=== PATIENT | female | born 1980 | race Caucasian/White ===

== ENCOUNTER → 2023-08-03 17:03 | Outpatient (CLI) | payer OTHER, MEDICAID, SELFPAY ==
[2023-08-03 17:57] LABS: Add Manual Diff / Slide Review NO; Basophils Absolute Auto 100 /uL (0-100); Basophils Percent Auto 0.7 % (0-2); Eosinophils Absolute Auto 100 /uL (0-450); Eosinophils Percent Auto 1.1 % (2-4); Hematocrit 39.1 % (36-46); Hemoglobin 13.7 g/dL (12.0-16.0); Lymphocytes Absolute Auto 3100 /uL (1100-4500); Lymphocytes Percent Auto 31.4 % (25-40); Mean Corpuscular HGB Conc 35.1 % (30-36); Mean Corpuscular Hemoglobin 29.6 PG (26-34); Mean Corpuscular Volume 84.3 fL (80-100); Monocytes Absolute Auto 500 /uL (0-900); Neutrophils Absolute Auto 6200 /uL (1500-7000); Neutrophils Percent Auto 61.8 % (50-75); Platelet Count 331 X10^3/uL (150-400); Red Blood Cell Count 4.63 X10^6/uL (4.0-5.2); Red Cell Distribution Width 13.3 % (11.6-14.8)
[2023-08-03 18:04] LABS: Hemoglobin A1C% w Est Avg Glu 7.4 % (4.0-6.0)
[2023-08-03 18:21] LABS: Alanine Aminotransferase 13 IU/L (<35); Albumin 4.5 g/dL (3.5-5.0); Albumin Globulin Ratio 1.3 (1.0-2.8); Alkaline Phosphatase 56 U/L (38-126); Aspartate Aminotransferase 17 IU/L (14-36); BUN Creatinine Ratio 18.8 (6-22); Bilirubin Total 0.5 mg/dL (0.2-1.3); Blood Urea Nitrogen 12 mg/dL (7-17); Calcium 9.6 mg/dL (8.4-10.2); Carbon Dioxide 23 mmol/L (22-32); Chloride 103 mmol/L (98-107); Estimated Glomerular Filt Rate > 60 mL/min (>60); Globulin 3.6 g/dL (1.7-4.1); Glucose 161 mg/dL (70-100); HEMOLYSIS < 15 (0-50); Potassium 3.8 mmol/L (3.4-5.1); Sodium 135 mmol/L (137-145); Total Protein 8.1 g/dL (6.3-8.2)
[2023-08-03 18:50] LABS: TSH w/ Reflex to FT4 1.41 uIU/mL (0.47-4.68)
[2023-08-03 19:58] LABS: Urine N gonorrhoeae NOT DETECTED
[2023-08-03 20:07] LABS: Urine Chlamydia NOT DETECTED
[2023-08-03 20:44] LABS: Creatinine Urine Random 61.5 mg/dL
[2023-08-03 20:49] LABS: Microalbumi Creatinin Ratio Ur 9.7 ug/mg CR (<30); Microalbumin Urine Random 0.6 mg/dL (0-1.6)
[2023-08-04 19:52] LABS: HIV 1 & 2 Ab/Ag 4th Gen Combo NEGATIVE (NEGATIVE)
[2023-08-05 05:39] LABS: RPR Screen Non Reactive (Non Reactive)
== END ==
LOC: LAB 17:04
PROVIDERS: PCP Family Medicine; Referring Provider Family Medicine; Visit Provider Family Medicine
DX: Z11.3 Encounter for screening for infections with a predominantly sexual mode of transmission (principal); E10.9 Type 1 diabetes mellitus without complications
CPT/HCPCS: 36415; 80053; 82043; 82570; 83036; 84443; 85025; 86592; 87389; 87491; 87522; 87591

== ENCOUNTER → 2024-04-12 09:09 | Outpatient (CLI) | payer OTHER, MEDICAID, SELFPAY ==
[2024-04-12 11:00] LABS: Cholesterol 183 mg/dL (140-199); HDL Cholesterol 67 mg/dL (40-60); LDL Cholesterol Calculated 104 mg/dL (<100); Triglycerides 60 mg/dL (35-150)
== END ==
PROVIDERS: PCP Family Medicine; Referring Provider Family Medicine; Visit Provider Family Medicine
DX: Z11.3 Encounter for screening for infections with a predominantly sexual mode of transmission (principal); E10.9 Type 1 diabetes mellitus without complications; R10.9 Unspecified abdominal pain; R11.0 Nausea
CPT/HCPCS: 36415; 80061; 82784; 83516

== ENCOUNTER → 2024-04-14 10:26 | Outpatient (CLI) | payer OTHER, MEDICAID, SELFPAY ==
[2024-04-16 16:39] LABS: C difficie Toxins A and B, EIA Negative (Negative)
== END ==
PROVIDERS: PCP Family Medicine; Referring Provider Family Medicine; Visit Provider Family Medicine
DX: R11.0 Nausea (principal); R10.9 Unspecified abdominal pain
CPT/HCPCS: 87045; 87324; 87329

== ENCOUNTER → 2024-04-24 10:51 | Outpatient (CLI) | payer OTHER, MEDICAID, SELFPAY ==
--- NOTE | 2024-04-24 10:53 | DI.US.S_ITS ---
LIMITED ULTRASOUND OF LEFT BREAST: 04/24/2024 CLINICAL: Focal left breast pain x 3 areas. 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 No prior exams were available for comparison. Real-time ultrasound of the left breast 5-7 o'clock region was performed. Benz scale images of the real-time examination were reviewed. No sonographic abnormality is seen in the area of clinical concern in the left breast 5, 6 and 7 o'clock, 7 cm from the nipple. IMPRESSION: NEGATIVE No sonographic abnormality in the areas of clinical concern. No sonographic evidence of malignancy. Clinical follow-up is recommended, and further management of palpable abnormalities or other focal signs or symptoms should be based on the results of clinical evaluation. If palpable abnormality or other concerning symptom persists or progresses, further clinical evaluation should be considered. Findings and recommendations were conveyed to the patient during today's evaluation. This exam was interpreted at Station ID: [id number]. Electronically Signed By: Danielle Haynes M.D., Ph.D. eb/:05/09/2024 09:15:45 letter sent: Clinical Evaluation ACR BI-RADS Category 1: Negative
[2024-04-24 11:20] LABS: Estimated Glomerular Filt Rate > 60 mL/min (>60)
--- NOTE | 2024-04-24 12:29 | DI.CT.S_ITS ---
PROCEDURE: CT ABDOMEN PELVIS W CON INDICATIONS: abdominal pain, nausea TECHNIQUE: After the administration of intravenous contrast, axial sections acquired from the lung bases to the pubic symphysis. Coronal and sagittal reformats were performed. For radiation dose reduction, the following was used: automated exposure control, adjustment of mA and/or kV according to patient size. COMPARISON: None. FINDINGS: Image quality: Diagnostic. Lower Chest: No significant findings. ABDOMEN: Liver: No solid mass. Gallbladder: No radiopaque gallstones or wall thickening. Biliary ducts: No biliary dilation. Pancreas: No ductal dilation. Spleen: Size is within normal limits. Incidental note is made of an accessory splenule along the hilum of the primary spleen. Adrenal Glands: No adrenal nodules. Kidneys and Ureters: No hydronephrosis. No solid mass. No complex renal cystic lesion which requires follow up. A 5 mm nonobstructing right-sided kidney stone is seen, as on series 2, image 50, measuring 400 Hounsfield units. Stomach and Bowel: Normal colonic caliber, without significant wall thickening. Peritoneum: No abnormal intraperitoneal fluid. No free air. Ventral Wall: A mild periumbilical hernia is seen, containing fat. Abdominal Nodes: No retroperitoneal or mesenteric adenopathy by size criteria. Vessels: Aorta and inferior vena cava are normal in size. PELVIS: Pelvic Organs: No adnexal masses are seen on either side. Bladder: No bladder wall thickening, accounting for underdistention. Pelvic Nodes: No enlarged lymph nodes. Miscellaneous: No inguinal hernias are seen. Bones: No aggressive osseous abnormality. IMPRESSION: No imaging explanation is found for this patient's presenting symptoms. No dilated loops of small bowel are seen. Additional findings: Accessory splenule 5 mm nonobstructing right-sided kidney stone Mild fat containing periumbilical hernia Dictated by: Stephen Schuler M.D. on 04/24/2024 at 11:55 Approved by: Stephen Schuler M.D. on 04/24/2024 at 11:57
== END ==
PROVIDERS: Radiology Diagnostic Radiology; PCP Family Medicine; Referring Provider Family Medicine; Visit Provider Family Medicine
DX: N64.4 Mastodynia (principal); R10.9 Unspecified abdominal pain; R11.0 Nausea; K42.9 Umbilical hernia without obstruction or gangrene; N20.0 Calculus of kidney
CPT/HCPCS: 36415; 74177; 76642; 82565; Q9967

== ENCOUNTER → 2024-09-25 15:08 | Outpatient (CLI) | payer OTHER, SELFPAY ==
[2024-09-25 15:49] LABS: Add Manual Diff / Slide Review NO; Basophils Absolute Auto 0 /uL (0-100); Basophils Percent Auto 0.5 % (0-2); Eosinophils Absolute Auto 200 /uL (0-450); Eosinophils Percent Auto 1.9 % (2-4); Hemoglobin 12.6 g/dL (12.0-16.0); Lymphocytes Absolute Auto 2100 /uL (1100-4500); Lymphocytes Percent Auto 24.7 % (25-40); Mean Corpuscular Hemoglobin 29.8 PG (26-34); Mean Corpuscular Volume 87.8 fL (80-100); Monocytes Absolute Auto 500 /uL (0-900); Monocytes Percent Auto 5.7 % (3-14); Neutrophils Absolute Auto 5800 /uL (1500-7000); Neutrophils Percent Auto 67.2 % (50-75); Platelet Count 216 X10^3/uL (150-400); Red Blood Cell Count 4.21 X10^6/uL (4.0-5.2); Red Cell Distribution Width 12.7 % (11.6-14.8); White Blood Cell Count 8.7 X10^3/uL (4.5-11.0)
[2024-09-25 16:09] LABS: HEMOLYSIS < 15 (0-50); Iron 59 ug/dL (37-170)
[2024-09-25 16:13] LABS: Alanine Aminotransferase 13 IU/L (<35); Albumin 4.2 g/dL (3.5-5.0); Albumin Globulin Ratio 1.4 (1.0-2.8); Alkaline Phosphatase 54 U/L (38-126); Aspartate Aminotransferase 21 IU/L (14-36); BUN Creatinine Ratio 24.2 (6-22); Bilirubin Total 0.3 mg/dL (0.2-1.3); Blood Urea Nitrogen 16 mg/dL (7-17); Calcium 9.4 mg/dL (8.4-10.2); Carbon Dioxide 22 mmol/L (22-32); Chloride 104 mmol/L (98-107); Estimated Glomerular Filt Rate > 60 mL/min (>60); Glucose 225 mg/dL (70-100); HEMOLYSIS < 15 (0-50); Potassium 4.4 mmol/L (3.4-5.1); Sodium 135 mmol/L (137-145); Total Protein 7.2 g/dL (6.3-8.2)
[2024-09-25 16:20] LABS: Percent Iron Saturation 23 % (15-50); Total Iron Binding Capacity 261 ug/dL (265-497); Transferrin 207 mg/dL (206-381)
[2024-09-25 16:31] LABS: Vitamin D 25 Hydroxy (D3) 29.5 ng/mL (30.0-100.0)
[2024-09-25 16:47] LABS: Ferritin 38 ng/mL (6-137)
[2024-09-25 17:17] LABS: Folate 11.8 ng/mL (2.76-20.0); Vitamin B12 219 pg/mL (239-931)
[2024-09-27 11:06] LABS: Hemoglobin A1C% w Est Avg Glu 6.2 % (4.0-6.0)
== END ==
PROVIDERS: PCP Family Medicine; Referring Provider Family Medicine; Visit Provider Family Medicine
DX: R10.12 Left upper quadrant pain (principal); R11.0 Nausea; R19.7 Diarrhea, unspecified; E10.9 Type 1 diabetes mellitus without complications; Z78.9 Other specified health status; E55.9 Vitamin D deficiency, unspecified; Z92.29 Personal history of other drug therapy
CPT/HCPCS: 36415; 80053; 82306; 82607; 82728; 82746; 83036; 83540; 83550; 85025; 86765; 87329

== ENCOUNTER → 2024-09-26 14:35 | Outpatient (CLI) | payer OTHER, SELFPAY | PROVIDERS: PCP Family Medicine; Referring Provider Family Medicine; Visit Provider Family Medicine | DX: R10.12 Left upper quadrant pain (principal); R11.0 Nausea; R19.7 Diarrhea, unspecified | CPT/HCPCS: 87177; 87324 ==

== ENCOUNTER → 2025-03-10 10:01 | Outpatient (CLI) | payer OTHER, SELFPAY | PROVIDERS: PCP Family Medicine; Visit Provider Nurse Practitioner Family | DX: J02.9 Acute pharyngitis, unspecified (principal) | CPT/HCPCS: 87070; 87147 ==

== ENCOUNTER → 2025-03-14 11:41 | Outpatient (CLI) | payer OTHER, SELFPAY ==
--- NOTE | 2025-03-14 11:42 | DI.US.S_ITS ---
PROCEDURE: US SOFT TISSUE HEAD AND NECK INDICATIONS: preauricular swelling TECHNIQUE: Real-time scanning was performed of the neck region of interest, with image documentation. Color Doppler was also utilized. COMPARISON: None. FINDINGS: At the area of clinical concern within the preauricular region, there is a multi lobular lesion seen that demonstrates hypoechogenicity and internal vascular flow the measures 2.7 x 1.7 x 1.3 cm. No other masses or enlarged lymph nodes are seen. IMPRESSION: 2.7 cm abnormal nodule with internal vascularity seen at the area of clinical concern. Differential diagnosis includes a parotid mass versus an abnormal lymph node. If this nodule does not resolve/greatly improve clinically in 2-4 weeks, please consider a follow-up repeat ultrasound versus soft tissue protocol neck CT with IV contrast for further evaluation. Dictated by: Stephen Schuler M.D. on 03/14/2025 at 11:23 Approved by: Stephen Schuler M.D. on 03/14/2025 at 11:25
== END ==
LOC: US 11:41
PROVIDERS: PCP Family Medicine; Referring Provider Nurse Practitioner Family; Visit Provider Nurse Practitioner Family
DX: R22.1 Localized swelling, mass and lump, neck (principal); R59.0 Localized enlarged lymph nodes
CPT/HCPCS: 76536

== ENCOUNTER → 2025-03-28 11:39 | Outpatient (CLI) | payer OTHER, SELFPAY ==
--- NOTE | 2025-03-28 11:40 | DI.US.S_ITS ---
PROCEDURE: US SOFT TISSUE HEAD AND NECK INDICATIONS: SHORT FOLLOW UP RIGHT PERIAURICULAR MASS TECHNIQUE: Real-time scanning was performed of the neck region of interest, with image documentation. COMPARISON: [facility], , US SOFT TISSUE HEAD AND NECK, 03/14/2025, 12:09. FINDINGS: Scan is performed at the area of clinical concern adjacent to the right ureter. There is a lobulated complex enhancing low echogenicity lesion seen, potentially within the superior parotid gland, measuring 2.6 x 1.5 x 1.2 cm, previously measuring 2.7 x 1.7 x 1.3 cm. IMPRESSION: There is again seen a vascular mass at the area of clinical concern, potentially within the superior parotid gland. This measures minimally smaller on the current study than on the prior. However, it is more vascular. Please consider short-term follow-up ultrasound versus percutaneous ultrasound- guided fine-needle aspiration for further evaluation. Dictated by: Stephen Schuler M.D. on 03/28/2025 at 12:12 Approved by: Stephen Schuler M.D. on 03/28/2025 at 12:13
== END ==
LOC: US 11:39
PROVIDERS: PCP Family Medicine; Referring Provider Family Medicine; Visit Provider Family Medicine
DX: R22.0 Localized swelling, mass and lump, head (principal)
CPT/HCPCS: 76536

== ENCOUNTER → 2025-04-05 14:53 | Outpatient (CLI) | payer OTHER, SELFPAY ==
--- NOTE | 2025-04-05 | PATH_ITS ---
Note [facility] Accession Number: [id number] TESTS RESULT FLAG UNITS REF RANGE LAB Clinician Provided Cytology Information No. of containers..01 Other (Miscellaneous) Source: RIGHT PERIAURICULAR MASS DIAGNOSIS: RIGHT PERIAURICULAR MASS INCONCLUSIVE. SCANT MATERIAL. CANNOT RULE OUT BASALOID NEOPLASM. THE SPECIMEN CONSISTS OF FEW CELL GROUPS WITH SCANT CYTOPLASM AND A BASALOID MORPHOLOGY. COMMENT: This case was also reviewed by Dr. Jane Corrigan (Julie), who agrees with the interpretation. Pathologist ICD10: D37.030 Signed out by: Divina Baird MD, Pathologist NPI- [id number] Performed by: Ricky Gannon, Loss Prevention Detective ([facility]) Gross description: 30 CC, YELLOW, HAZY RECIEVED: IN CYTOLYT WITH BLUE CAP CONTAINER.VO /VDU 04/08/2025 0934 Local FLAG LEGEND: L-Low Normal,H-High Normal,LL-Alert Low,HH-Alert High <-Panic Low,>-Panic High,A-Abnormal,AA-Critical Abnormal Performed at: 01 =Z [facility] [address], [place] [address] Brandt Tucker MD, Performed at: [address] [facility], [place], [place] [id number] MD Brandt Tucker MD Phone: [phone]
--- NOTE | 2025-04-05 14:54 | DI.US.S_ITS ---
PROCEDURE: US FINE NEEDLE ASPIRATION INDICATIONS: RIGHT PREAURICULAR MASS TECHNIQUE: The indications, alternatives, benefits, risks, and complications of the procedure were explained to the patient. Written informed consent was obtained and placed in the chart. Real-time sonography was utilized to choose the site for percutaneous lymph node sampling. The skin was prepped and draped in the usual sterile fashion. 1% lidocaine was infiltrated down to the site of interest. Serial hypodermic needles were then advanced into the site of interest under direct sonographic visualization, and serial needle aspirates were obtained. The needles were then withdrawn; a bandage was applied to the procedure site. COMPARISON: None. FINDINGS: Sample site(s): Right periauricular soft tissue mass. Needle: 22 and 25 gauge needles.. Number of passes: 6. Medications: 1% lidocaine for local anaesthesia. Complications: None. IMPRESSION: Successful ultrasound-guided right Periauriculer soft tissue mass fine needle aspiration, with cytology results pending. Dictated by: Fidel Ellington Coni Interpreted: David Vaughn MD on 04/15/2025 at 8:52 Transcribed by: AYLIN on 04/15/2025 at 8:53 Approved by: David Vaughn M.D. on 04/15/2025 at 14:03
== END ==
LOC: US 14:53
PROVIDERS: PCP Family Medicine; Referring Provider Family Medicine; Visit Provider Radiology Diagnostic Radiology
DX: D37.030 Neoplasm of uncertain behavior of the parotid salivary glands (principal); R22.0 Localized swelling, mass and lump, head
CPT/HCPCS: 10005

== ENCOUNTER → 2025-05-20 09:44 | Outpatient (CLI) | payer OTHER, SELFPAY ==
[2025-05-20 10:19] LABS: Add Manual Diff / Slide Review NO; Hematocrit 37.6 % (36-46); Hemoglobin 12.9 g/dL (12.0-16.0); Lymphocytes Absolute Auto 1600 /uL (1100-4500); Mean Corpuscular HGB Conc 34.4 % (30-36); Mean Corpuscular Hemoglobin 29.7 PG (26-34); Mean Corpuscular Volume 86.3 fL (80-100); Platelet Count 262 X10^3/uL (150-400)
[2025-05-20 10:56] LABS: Hemoglobin A1C% w Est Avg Glu 6.3 % (4.0-6.0)
[2025-05-20 11:06] LABS: Alanine Aminotransferase 10 IU/L (<35); Albumin 4.1 g/dL (3.5-5.0); Albumin Globulin Ratio 1.4 (1.0-2.8); Alkaline Phosphatase 60 U/L (38-126); Blood Urea Nitrogen 12 mg/dL (7-17); Calcium 9.2 mg/dL (8.4-10.2); Carbon Dioxide 23 mmol/L (22-32); Chloride 107 mmol/L (98-107); Cholesterol 178 mg/dL (140-199); Estimated Glomerular Filt Rate > 60 mL/min (>60); Globulin 2.9 g/dL (1.7-4.1); Glucose 142 mg/dL (70-99); HDL Cholesterol 70 mg/dL (40-60); HEMOLYSIS < 15 (0-50); Potassium 4.5 mmol/L (3.4-5.1); Sodium 139 mmol/L (137-145); Total Protein 7.0 g/dL (6.3-8.2); Triglycerides 65 mg/dL (35-150)
[2025-05-20 11:40] LABS: Vitamin D 25 Hydroxy (D3) 21.6 ng/mL (30.0-100.0)
[2025-05-20 11:51] LABS: Vitamin B12 220 pg/mL (239-931)
== END ==
PROVIDERS: PCP Family Medicine; Referring Provider Family Medicine; Visit Provider Family Medicine
DX: E10.9 Type 1 diabetes mellitus without complications (principal); E53.8 Deficiency of other specified B group vitamins; E78.5 Hyperlipidemia, unspecified; R19.7 Diarrhea, unspecified; Z78.9 Other specified health status; E55.9 Vitamin D deficiency, unspecified
CPT/HCPCS: 36415; 80053; 80061; 82306; 82607; 83036; 85025